=== PATIENT | male | born 1960 | race Caucasian/White ===

== ENCOUNTER 2019-06-26 12:57 | Emergency (ER) | payer MEDICAID ==
[~2019-06-26] VITALS: Ht 190.5 cm; Wt 109.1 kg
[2019-06-26 13:19] VITALS: BP 124/58
[2019-06-26] MEDS ORDERED: proparacaine 0.5% ophthalmic drops 15ml EACHEYE ONE (14:10)
[2019-06-26] MEDS ORDERED: ciprofloxacin 0.3% 2.5ml ophthalmic solution EACHEYE STA (15:24)
[2019-06-26] MEDS ORDERED: CIPR2.5D18 EACHEYE (15:24)
== END 2019-06-26 16:19 | disposition home or self-care (01) ==
LOC: ER 12:58
DX: H10.9 Unspecified conjunctivitis (principal); H16.9 Unspecified keratitis; Z79.2 Long term (current) use of antibiotics
CPT/HCPCS: 99283